=== PATIENT | female | born 1975 | race Caucasian/White ===

== ENCOUNTER 2021-07-12 15:26 | Emergency (ER) | payer SELFPAY ==
[~2021-07-12] VITALS: Ht 162.6 cm; Wt 68.0 kg
[2021-07-12] MEDS ORDERED: HYDROCODONE/ACETAMINOPHEN 5/325MG TABLET PO ONE (16:00)
[2021-07-12] MEDS ORDERED: ONDANSETRON HCL 4MG/2ML INJ IV ONE (16:45)
[2021-07-12] MEDS ORDERED: PROPOFOL 200MG/20ML VIAL IV ONE (16:45)
[2021-07-12 17:28] VITALS: BP 149/84
== END 2021-07-12 18:21 | disposition home or self-care (01) ==
LOC: ER 15:26
DX: S43.085A Other dislocation of left shoulder joint, initial encounter (principal); W18.39XA Other fall on same level, initial encounter; Y93.89 Activity, other specified; Y92.89 Other specified places as the place of occurrence of the external cause; Y99.8 Other external cause status; F41.9 Anxiety disorder, unspecified
CPT/HCPCS: 23650; 73030; 93005; 96374; 99152; 99285; J2405; J2704